=== PATIENT | male | born 1965 | race American Indian/Alaskan Native ===

== ENCOUNTER 2022-02-19 04:19 | Emergency (ER) | payer SELFPAY ==
[~2022-02-19] VITALS: Ht 177.8 cm; Wt 68.0 kg
[2022-02-19] MEDS ORDERED: SULTRIDS PO (07:19)
== END 2022-02-19 07:25 | disposition home or self-care (01) ==
LOC: ER 04:19
DX: I88.9 Nonspecific lymphadenitis, unspecified (principal); S20.409A Unspecified superficial injuries of unspecified back wall of thorax, initial encounter; X58.XXXA Exposure to other specified factors, initial encounter; Z23 Encounter for immunization
CPT/HCPCS: 90714; A9270